=== PATIENT | female | born 1970 | race Two or more races ===

== ENCOUNTER → 2025-03-16 | Outpatient (REF) | payer OTHER ==
[2025-03-16 14:57] LABS: BASO # 0.0 10^3/uL (0.0-0.2); BASO % 0.5 % (0.0-1.0); EOS # 0.0 10^3/uL (0.0-0.5); EOS % 0.7 % (0.0-3.0); EOSINOPHIL,TOTAL CALCULATED 0 mm3 (0-740); LYMPH # 2.2 10^3/uL (1.5-5.0); LYMPH % 35.8 % (24.0-44.0); MONO # 0.3 10^3/uL (0.0-0.8); MONO % 5.3 % (2.0-8.0); NEUTROPHILS # 3.5 10^3/uL (1.5-8.5); NEUTROPHILS % 57.5 % (36.0-66.0); PLATELET COUNT, AUTOMATED 287 10^3/uL (150-450)
[2025-03-16 15:31] LABS: ALT/SGPT 17 U/L (7.0-40); AST/SGOT 17 U/L (<34); C REACTIVE PROTEIN QUANTITATIV < 0.50 MG/DL (<1.0); CALCIUM LEVEL 9.2 MG/DL (8.5-10.1); CREATININE FOR GFR 0.76 MG/DL (0.55-1.30); GLOMERULAR FILTRATION RATE > 90.0 (>51)
[2025-03-16 15:32] LABS: RHEUMATOID FACTOR QUANT 4.9 IU/ML (<14)
[2025-03-17 13:27] LABS: RNP ANTIBODY <1.0 NEG AI (<1.0 NEG); SSA SJOGRENS A <1.0 NEG AI (<1.0 NEG); SSB SJOGRENS B <1.0 NEG AI (<1.0 NEG)
[2025-03-19 04:37] LABS: CRYTPOCOCCUS SOURCE Serum
[2025-03-19 15:27] LABS: ANGIOTENSIN 1 CONVERTING ENZYM 36 U/L (9-67)
[2025-03-21 14:52] LABS: ASPERGILLUS FUMIGATUS AB NEGATIVE (NEGATIVE); MICROPOLYSPORA FAENI AB NEGATIVE (NEGATIVE); PIGEON SERUM AB NEGATIVE (NEGATIVE); S VIRIDIS NEGATIVE (NEGATIVE); T CANDIDUS NEGATIVE (NEGATIVE); THERMOACTINOMYCES VULGARIS NEGATIVE (NEGATIVE)
[2025-03-21 21:58] LABS: COCCIDIODES AB IGG NEGATIVE (NEGATIVE); COCCIDIOIDES AB IGM NEGATIVE (NEGATIVE)
[2025-03-22 00:02] LABS: ASPERGILLUS FLAVUS ABY Negative (Negative); ASPERGILLUS FUMIGATUS ABY Negative (Negative); ASPERGILLUS NIGER ABY Negative (Negative); HISTOPLASMA AB H BAND Negative (Negative); HISTOPLASMA AB M BAND Negative (Negative)
[2025-03-22 10:37] LABS: ANTI DS-DNA AB Negative (Negative)
[2025-03-22 19:23] LABS: BLASTOMYCES ANTIBODY LEVEL Negative (Negative)
== END ==
LOC: M LAB REF 13:09
PROVIDERS: ATTEND Internal Medicine Pulmonary Disease
DX: R91.8 Other nonspecific abnormal finding of lung field (principal)